=== PATIENT | male | born 1975 | race Caucasian/White ===

== ENCOUNTER 2021-10-02 20:20 | Emergency (ER) | payer OTHER ==
--- NOTE | 2021-10-02 22:36 | Cat Scan Report ---
CT HEAD WITHOUT CONTRAST INDICATION / CLINICAL INFORMATION: FALL. TECHNIQUE: All CT scans at this location are performed using CT dose reduction for ALARA by means of automated exposure control. COMPARISON: None available. FINDINGS: HEMORRHAGE: None. EXTRA-AXIAL SPACES: Normal in size and morphology for the patient's age. VENTRICULAR SYSTEM: Normal in size and morphology for the patient's age. CEREBRAL PARENCHYMA: No significant abnormality. No acute territorial infarct. MIDLINE SHIFT / HERNIATION: None. CEREBELLUM / BRAINSTEM: No significant abnormality. ORBITS: Normal as visualized. SOFT TISSUES: Slight bruising overlying the left cheek. SKULL: Partially visualized fractures of the posterior wall the left maxillary sinus. Possible involv ement of the posterior aspect of the inferior orbital wall. There is blood within the sinus. PARANASAL SINUSES / MASTOID AIR CELLS: There are blood products within the left maxillary sinus. ADDITIONAL FINDINGS: None. IMPRESSION: 1. Partially visualized mildly displaced fractures of the left maxillary bone along the posterior asp ect of the left maxillary sinus. Further evaluation with dedicated CT maxillofacial is recommended. 2. No CT evidence of an acute intracranial abnormality. Signer Name: Lester Vogel MD Signed: 10/02/2021 10:31 PM Workstation Name: [id number]
[2021-10-03 02:39] VITALS: BP 125/78
[2021-10-03] MEDS ORDERED: ONDANSETRON 4 MG/2 ML INJ IV ONE (06:54)
[2021-10-03] MEDS ORDERED: TETANUS,DIPH,PERTUSS(ACELL) VACCINE 0.5 ML SYRINGE IM ONE (07:07)
--- NOTE | 2021-10-03 07:07 | Emergency Department Report ---
ED Trauma HPI - General Chief Complaint: Head Injury Stated Complaint: HIT HEAD Time Seen by Provider: 10/03/21 06:53 Source: patient, RN notes reviewed Exam Limitations: no limitations - History of Present Illness Initial Comments: This is a 46-year-old male nontoxic, well nourished in appearance, no acute signs of distress presents to the ED with c/o of multiple injuries status post fall from 6 feet scaffold. Patient today he fell on towards his left face and left side upper extremity area. Otherwise patient denies any loss of consciousness. Patient still has some headaches, neck pain, facial pain, left shoulder, left lateral rib pain, left elbow pain, left wrist and left hand pain. Patient denies any other complaints or symptoms. Patient ecchymosis, chest pain, short of breath, blurry vision, fever, chills, stiff neck, bladder or bowel instability, diaphoresis, nausea, vomiting, joint pain or swelling, visual changes, numbness or tingling sensation extremity. Patient agrees to good rectal tone with no bladder overflow. Patient is currently ambulatory with no assistance. Patient denies any EtOH or recreational drugs. Patient denies any allergies or significant past medical history. Occurred: just prior to arrival Severity: moderate Pain Location: head, face, neck, chest, back, lower extremity Method of Injury: fall Loss of Consciousness: no loss of consciousness Associated Symptoms (Fall): chest pain, headache, nausea/vomiting, neck pain. denies: confusion, dizziness, lightheadedness, muscle spasms, ringing in ears, seizures, shortness of breath, slurred speech, trouble walking, vision changes Allergies/Adverse Reactions: Allergies No Known Allergies Allergy (Unverified 11/22/12 12:47) Home Medications: Ambulatory Orders Ibuprofen [Motrin] 800 mg PO TID #30 tablet 11/22/12 ED Review of Systems ROS: Stated complaint: HIT HEAD Other details as noted in HPI Comment: All other systems reviewed and negative Constitutional: denies: chills, fever Eyes: denies: eye pain, eye discharge, vision change ENT: denies: ear pain, throat pain Respiratory: denies: cough, shortness of breath, wheezing Cardiovascular: denies: chest pain, palpitations Endocrine: no symptoms reported Gastrointestinal: nausea, vomiting. denies: abdominal pain, diarrhea Genitourinary: denies: urgency, dysuria Musculoskeletal: back pain. denies: joint swelling, arthralgia Skin: denies: rash, lesions Neurological: headache. denies: weakness, numbness, paresthesias, confusion, abnormal gait, vertigo Psychiatric: denies: anxiety, depression Hematological/Lymphatic: denies: easy bleeding, easy bruising ED Past Medical Hx - Social History Smoking Status: Never Smoker - Medications Home Medications: Home Medications Medication Instructions Recorded Confirmed Last Taken Type Ibuprofen [Motrin] 800 mg PO TID #30 tablet 11/22/12 Unknown Rx ED Physical Exam - General Limitations: No Limitations General appearance: alert, in no apparent distress - Head Head exam: Present: normocephalic - Expanded Head Exam Expanded Head exam: Present: abrasion 1 - abrasion here with ecchymosis - Eye Eye exam: Present: normal appearance, PERRL, EOMI. Absent: scleral icterus, conjunctival injection, nystagmus, periorbital swelling, periorbital tenderness Pupils: Present: normal accommodation - ENT ENT exam: Present: normal exam, normal orophraynx, TM's normal bilaterally, normal external ear exam - Neck Neck exam: Present: normal inspection, full ROM. Absent: tenderness, meningismus, lymphadenopathy - Respiratory Respiratory exam: Present: normal lung sounds bilaterally, chest wall tenderness (left lateral chest). Absent: respiratory distress, wheezes, rales, rhonchi, stridor, accessory muscle use, decreased breath sounds, prolonged expiratory - Cardiovascular Cardiovascular Exam: Present: regular rate, normal rhythm, normal heart sounds. Absent: bradycardia, tachycardia, irregular rhythm, systolic murmur, diastolic murmur, rubs, gallop - GI/Abdominal GI/Abdominal exam: Present: soft, tenderness (left upper abdomen), normal bowel sounds. Absent: distended, guarding, rebound, rigid, diminished bowel sounds - Extremities Exam Extremities exam: Present: full ROM (with pain), tenderness, normal capillary refill. Absent: pedal edema, joint swelling, calf tenderness - Expanded Upper Extremity Exam Left Shoulder Exam: Present: full ROM (left shoulder with pain), tenderness (left shoulder only). Absent: swelling (bilateral exam), abrasion (bilateral exam), laceration (v), ecchymosis (bilateral exam), deformity (bilateral exam), crepidus (bilateral exam), dislocation (bilateral exam), erythema (bilateral exam), tenderness over AC joint (bilateral exam) Upper Arm exam: Present: normal inspection (bilateral exam), full ROM (bilateral exam). Absent: tenderness (bilateral exam), swelling (bilateral exam) Elbow exam: Present: normal inspection (bilateral exam), full ROM (left shoulder with pain), tenderness (left elbow only). Absent: swelling (bilateral exam), abrasion (bilateral exam), laceration (bilateral exam), ecchymosis (bilateral exam), deformity (bilateral exam), crepidus (bilateral exam), dislocation (bilateral exam), erythema, effusion, pain w/ pronation/supination, tenderness over radial head Forearm Wrist exam: Present: normal inspection (bilateral exam), full ROM (bilateral exam), tenderness (left side only), ecchymosis (left side only). Absent: swelling (bilateral exam), laceration (bilateral exam), deformity (bilateral exam), crepidus (bilateral exam), dislocation (bilateral exam), erythema (bilateral exam), tenderness over anatomical snuff box, pain with axial thumb loading Hand Wrist exam: Present: full ROM (left side with pain only), tenderness (left side only), swelling (left side only), ecchymosis (left side only). Absent: abrasion (bilateral exam), laceration (bilateral exam), deformity (bilateral exam), crepidus (bilateral exam), dislocation (bilateral exam), erythema (bilateral exam), amputation (bilateral exam), nail avulsion (bilateral exam), subungual hematoma (bilateral exam) Vascular: Present: normal capillary refill (bilateral exam). Absent: vascular compromise (bilateral exam: Neurovascular within normal limits) - Back Exam Back exam: Present: normal inspection, full ROM, paraspinal tenderness (cervical, lumbar and throcic). Absent: tenderness, CVA tenderness (R), CVA tenderness (L), muscle spasm, vertebral tenderness, rash noted - Expanded Back Exam Expanded Back exam: Absent: saddle anesthesia Back exam: Negative Straight Leg Raising: Left, Right - Neurological Exam Neurological exam: Present: alert, oriented X3, normal gait - Expanded Neurological Exam Expanded Patient oriented to: Present: person, place, time Cranial nerves: EOM's Intact: Normal, Facial Sensation: Normal Cerebellar function: Finger to Nose: Normal Upper motor neuron: Pronator Drift: Normal, Sensory Extinction: Normal Motor strength exam: RUE: 5, LUE: 5, RLE: 5, LLE: 5 Best Eye Response (Victoria): (4) open spontaneously Best Motor Response (Edgar): (6) obeys commands Best Verbal Response (Victoria): (5) oriented Edgar Total: 15 - Psychiatric Psychiatric exam: Present: normal affect, normal mood - Skin Skin exam: Present: warm, dry, intact, normal color. Absent: rash ED Course Vital Signs 10/02/21 10/03/21 10/03/21 20:59 02:37 11:33 Temperature 99.1 F 98.9 F Pulse Rate 96 H 89 Respiratory 18 18 Rate Blood Pressure 145/90 Blood Pressure 125/78 [Right] O2 Sat by Pulse 96 97 100 Oximetry - Reevaluation(s) Reevaluation #1: 10/03/21 07:10 Patient is speaking in full sentences with no signs of distress noted. - Consultations Consultation #1: 10/03/21 07:03 Patient has been consulted with Inder Wellington about patient history, physical exam, and agrees to the ED plan of care. Trauma protocols initiated. Consultation #2: 10/03/21 10:[address] Ceja and agrees to consult trauma. Awaiting for [facility] trauma for their consult. Consultation #3: 10/03/21 10:59 Patient has been consulted with Dr. Hanley ([facility] trauma ED) about patient history, physical exam, and imaging studies and accepts patient to services. Will transfer patient to [facility] ED at this time. ED Medical Decision Making - Lab Data Result diagrams: 10/03/21 06:57 10/03/21 06:57 Lab Results 10/03/21 10/03/21 Range/Units 06:57 06:57 WBC 11.7 H (4.5-11.0) K/mm3 RBC 5.27 H (3.65-5.03) M/mm3 Hgb 15.2 (11.8-15.2) gm/dl Hct 45.2 (35.5-45.6) % MCV 86 (84-94) fl MCH 29 (28-32) pg MCHC 34 (32-34) % RDW 13.3 (13.2-15.2) % Plt Count 294 (140-440) K/mm3 Lymph % (Auto) 13.6 (13.4-35.0) % Hood % (Auto) 7.9 H (0.0-7.3) % Eos % (Auto) 0.6 (0.0-4.3) % Baso % (Auto) 0.2 (0.0-1.8) % Lymph # (Auto) 1.6 (1.2-5.4) K/mm3 Hood # (Auto) 0.9 H (0.0-0.8) K/mm3 Eos # (Auto) 0.1 (0.0-0.4) K/mm3 Baso # (Auto) 0.0 (0.0-0.1) K/mm3 Seg Neutrophils % 77.7 H (40.0-70.0) % Seg Neutrophils # 9.1 H (1.8-7.7) K/mm3 Sodium 138 (137-145) mmol/L Potassium 3.9 (3.6-5.0) mmol/L Chloride 99.5 (98-107) mmol/L Carbon Dioxide 25 (22-30) mmol/L Anion Gap 17 mmol/L BUN 16 (9-20) mg/dL Creatinine 0.8 (0.8-1.3) mg/dL Estimated GFR > 60 ml/min BUN/Creatinine Ratio 20 % Glucose 111 H (75-100) mg/dL Calcium 9.4 (8.4-10.2) mg/dL Total Bilirubin 1.50 H (0.1-1.2) mg/dL Direct Bilirubin 0.2 (0-0.2) mg/dL Indirect Bilirubin 1.3 mg/dL AST 24 (5-40) units/L ALT 23 (7-56) units/L Alkaline Phosphatase 117 (35-129) units/L Total Protein 7.7 (6.3-8.2) g/dL Albumin 5.0 (3.9-5) g/dL Albumin/Globulin Ratio 1.9 % - Radiology Data [facility] [address] [place] [address] XRay Report Signed Patient: CIELO BARRY MR#: [id number] : 1975 Acct:[id number] Age/Sex: 46 / M ADM Date: 10/02/21 Loc: ED Attending Dr: Ordering Physician: MICK LÓPEZ NP Date of Service: 10/03/21 Procedure(s): XR wrist 3+V LT Accession Number(s): [id number] cc: MICK LÓPEZ NP Fluoro Time In Minutes: LEFT WRIST 3 VIEWS INDICATION: pain s/p fall. COMPARISON: None. IMPRESSION: Mild soft tissue swelling is present. No acute osseous abnormality or joint pathology is detected. Signer Name: Alexandre Centeno Jr, MD Signed: 10/03/2021 9:33 AM Workstation Name: [id number] Transcribed By: TTR Dictated By: ALEXANDRE CENTENO JR, MD Electronically Authenticated By: ALEXANDRE CENTENO JR, MD Signed Date/Time: 10/03/21932 DD/ 0 TD/TT: [facility] [address] [place] [address] XRay Report Signed Patient: CIELO BARRY MR#: [id number] : 1975 Acct:[id number] Age/Sex: 46 / M ADM Date: 10/02/21 Loc: ED Attending Dr: Ordering Physician: MICK LÓPEZ NP Date of Service: 10/03/21 Procedure(s): XR spine thoracic 2V Accession Number(s): [id number] cc: MICK LÓPEZ NP Fluoro Time In Minutes: THORACIC SPINE 2 VIEWS Lumbar spine 3 views INDICATION / CLINICAL INFORMATION: pain s/p fall. COMPARISON: CT dated 10/04/2019 FINDINGS: Thoracic spine: VERTEBRAE: No acute fracture of the imaged vertebral bodies. Several upper thoracic vertebral bodies are not well seen. No significant malalignment. DISC SPACES / FACET JOINTS:No significant abnormality. PARASPINAL SOFT TISSUES:No significant abnormality. ADDITIONAL FINDINGS: None. Lumbar spine: VERTEBRAE: No acute fracture. No significant malalignment. DISC SPACES / FACET JOINTS:No significant abnormality. PARASPINAL SOFT TISSUES:Excreted contrast material fills the renal collecting system and urinary bladder. This results in obscuration of the sacrum on AP views. ADDITIONAL FINDINGS: None. IMPRESSION: 1. No acute findings in the thoracic or lumbar spine. Signer Name: Jeffrey Anguiano MD Signed: 10/03/2021 9:32 AM Workstation Name: [id number] Transcribed By: JW Dictated By: JEFFREY ANGUIANO MD Electronically Authenticated By: JEFFREY ANGUIANO MD Signed Date/Time: 10/03/21931 DD/ 8 TD/TT: [facility] [address] [place] [address] XRay Report Signed Patient: CIELO BARRY MR#: [id number] : 1975 Acct:[id number] Age/Sex: 46 / M ADM Date: 10/02/21 Loc: ED Attending Dr: Ordering Physician: MICK LÓPEZ NP Date of Service: 10/03/21 Procedure(s): XR shoulder 2+V LT Accession Number(s): [id number] cc: MICK LÓPEZ NP Fluoro Time In Minutes: XR forearm LT, XR hand 3+V LT, XR elbow 3+V LT, XR shoulder 2+V LT INDICATION / CLINICAL INFORMATION: pain s/p fall. COMPARISON: None available. FINDINGS: Left shoulder: No acute fracture or malalignment. Left elbow: Acute mild comminuted, minimally displaced fracture of the lateral/volar aspect of the radial head with intra-articular involvement. No intra-articular incongruency. Radial capitellar alignment is preserved. No additional fracture. No significant arthritis. Mild joint capsular distention with elevation of the anterior fat pad. Left forearm: No additional fracture of the left radius or ulna. Left hand: Small fracture fragment at the dorsal aspect of the carpus likely reflecting triquetral fracture. No additional fracture. No joint malalignment. IMPRESSION: 1. Acute intra-articular radial head fracture. 2. Small triquetral fracture of the dorsal hand. Signer Name: Celeste Herrera MD Signed: 10/03/2021 9:32 AM Workstation Name: [id number] Transcribed By: JS Dictated By: CELESTE HERRERA MD Electronically Authenticated By: CELESTE HERRERA MD Signed Date/Time: 10/03/21931 DD/ 7 TD/TT: [facility] [address] [place] [address] XRay Report Signed Patient: CIELO BARRY MR#: [id number] : 1975 Acct:[id number] Age/Sex: 46 / M ADM Date: 10/02/21 Loc: ED Attending Dr: Ordering Physician: MICK LÓPEZ NP Date of Service: 10/03/21 Procedure(s): XR spine lumbosacral 2-3V Accession Number(s): [id number] cc: MICK LÓPEZ NP Fluoro Time In Minutes: THORACIC SPINE 2 VIEWS Lumbar spine 3 views INDICATION / CLINICAL INFORMATION: pain s/p fall. COMPARISON: CT dated 10/04/2019 FINDINGS: Thoracic spine: VERTEBRAE: No acute fracture of the imaged vertebral bodies. Several upper thoracic vertebral bodies are not well seen. No significant malalignment. DISC SPACES / FACET JOINTS:No significant abnormality. PARASPINAL SOFT TISSUES:No significant abnormality. ADDITIONAL FINDINGS: None. Lumbar spine: VERTEBRAE: No acute fracture. No significant malalignment. DISC SPACES / FACET JOINTS:No significant abnormality. PARASPINAL SOFT TISSUES:Excreted contrast material fills the renal collecting system and urinary bladder. This results in obscuration of the sacrum on AP views. ADDITIONAL FINDINGS: None. IMPRESSION: 1. No acute findings in the thoracic or lumbar spine. Signer Name: Jeffrey Anguiano MD Signed: 10/03/2021 9:32 AM Workstation Name: [id number] Transcribed By: JW Dictated By: JEFFREY ANGUIANO MD Electronically Authenticated By: JEFFREY ANGUIANO MD Signed Date/Time: 10/03/21931 DD/ 8 TD/TT: [facility] [address] [place] [address] XRay Report Signed Patient: CIELO BARRY MR#: [id number] : 1975 Acct:[id number] Age/Sex: 46 / M ADM Date: 10/02/21 Loc: ED Attending Dr: Ordering Physician: MICK LÓPEZ NP Date of Service: 10/03/21 Procedure(s): XR hand 3+V LT Accession Number(s): [id number] cc: MICK LÓPEZ NP Fluoro Time In Minutes: XR forearm LT, XR hand 3+V LT, XR elbow 3+V LT, XR shoulder 2+V LT INDICATION / CLINICAL INFORMATION: pain s/p fall. COMPARISON: None available. FINDINGS: Left shoulder: No acute fracture or malalignment. Left elbow: Acute mild comminuted, minimally displaced fracture of the lateral/volar aspect of the radial head with intra-articular involvement. No intra-articular incongruency. Radial capitellar alignment is preserved. No additional fracture. No significant arthritis. Mild joint capsular distention with elevation of the anterior fat pad. Left forearm: No additional fracture of the left radius or ulna. Left hand: Small fracture fragment at the dorsal aspect of the carpus likely reflecting triquetral fracture. No additional fracture. No joint malalignment. IMPRESSION: 1. Acute intra-articular radial head fracture. 2. Small triquetral fracture of the dorsal hand. Signer Name: Celeste Herrera MD Signed: 10/03/2021 9:32 AM Workstation Name: [id number] Transcribed By: JS Dictated By: CELESTE HERRERA MD Electronically Authenticated By: CELESTE HERRERA MD Signed Date/Time: 10/03/21931 DD/ 7 TD/TT: [address] [address] XRay Report Signed Patient: CIELO BARRY MR#: [id number] : 1975 Acct:[id number] Age/Sex: 46 / M ADM Date: 10/02/21 Loc: ED Attending Dr: Ordering Physician: MICK LÓPEZ NP Date of Service: 10/03/21 Procedure(s): XR forearm LT Accession Number(s): [id number] cc: MICK LÓPEZ NP Fluoro Time In Minutes: XR forearm LT, XR hand 3+V LT, XR elbow 3+V LT, XR shoulder 2+V LT INDICATION / CLINICAL INFORMATION: pain s/p fall. COMPARISON: None available. FINDINGS: Left shoulder: No acute fracture or malalignment. Left elbow: Acute mild comminuted, minimally displaced fracture of the lateral/volar aspect of the radial head with intra-articular involvement. No intra-articular incongruency. Radial capitellar alignment is preserved. No additional fracture. No significant arthritis. Mild joint capsular distention with elevation of the anterior fat pad. Left forearm: No additional fracture of the left radius or ulna. Left hand: Small fracture fragment at the dorsal aspect of the carpus likely reflecting triquetral fracture. No additional fracture. No joint malalignment. IMPRESSION: 1. Acute intra-articular radial head fracture. 2. Small triquetral fracture of the dorsal hand. Signer Name: Celeste Herrera MD Signed: 10/03/2021 9:32 AM Workstation Name: [id number] Transcribed By: RAMON Dictated By: CELESTE HERRERA MD Electronically Authenticated By: CELESTE HERRERA MD Signed Date/Time: 10/03/21931 DD/ 7 TD/TT: [place] [address] Cat Scan Report Signed Patient: CIELO BARRY MR#: [id number] : 1975 Acct:[id number] Age/Sex: 46 / M ADM Date: 10/02/21 Loc: ED Attending Dr: Ordering Physician: MICK LÓPEZ NP Date of Service: 10/03/21 Procedure(s): CT facial bones wo con Accession Number(s): [id number] cc: MICK LÓPEZ NP CT MAXILLOFACIAL WITHOUT CONTRAST INDICATION: pain s/p fall. TECHNIQUE: All CT scans at this location are performed using CT dose reduction for ALARA by means of automated exposure control. COMPARISON: None available. FINDINGS: FACIAL BONES: There is a mildly displaced fracture of the left inferior orbital rim extending into the left lateral maxillary sinus wall. There is no additional fracture. Temporomandibular joints are normally aligned. PARANASAL SINUSES: Small amount blood layering in the left maxillary sinus. ORBITS: No significant abnormality. VISUALIZED INTRACRANIAL STRUCTURES: No significant abnormality. ADDITIONAL FINDINGS: None. IMPRESSION: 1. Mildly displaced fracture of the left inferior orbital rim extending into the left lateral maxillary sinus wall. Signer Name: Rodger Mcclure MD Signed: 10/03/2021 8:47 AM Workstation Name: [id number] Transcribed By: ABDIRIZAK Dictated By: Rodger Mcclure MD Electronically Authenticated By: Rodger Mcclure MD Signed Date/Time: 10/03/21846 DD/ 9 TD/TT: [address] [address] XRay Report Signed Patient: CIELO BARRY MR#: [id number] : 1975 Acct:[id number] Age/Sex: 46 / M ADM Date: 10/02/21 Loc: ED Attending Dr: Ordering Physician: MICK LÓPEZ NP Date of Service: 10/03/21 Procedure(s): XR elbow 3+V LT Accession Number(s): [id number] cc: MICK LÓPEZ NP Fluoro Time In Minutes: XR forearm LT, XR hand 3+V LT, XR elbow 3+V LT, XR shoulder 2+V LT INDICATION / CLINICAL INFORMATION: pain s/p fall. COMPARISON: None available. FINDINGS: Left shoulder: No acute fracture or malalignment. Left elbow: Acute mild comminuted, minimally displaced fracture of the lateral/volar aspect of the radial head with intra-articular involvement. No intra-articular incongruency. Radial capitellar alignment is preserved. No additional fracture. No significant arthritis. Mild joint capsular distention with elevation of the anterior fat pad. Left forearm: No additional fracture of the left radius or ulna. Left hand: Small fracture fragment at the dorsal aspect of the carpus likely reflecting triquetral fracture. No additional fracture. No joint malalignment. IMPRESSION: 1. Acute intra-articular radial head fracture. 2. Small triquetral fracture of the dorsal hand. Signer Name: Celeste Hererra MD Signed: 10/03/2021 9:32 AM Workstation Name: [id number] Transcribed By: JS Dictated By: CELESTE HERRERA MD Electronically Authenticated By: CELESTE HERRERA MD Signed Date/Time: 10/03/21931 DD/ 7 TD/TT: [address] [address] Cat Scan Report Signed Patient: CIELO BARRY MR#: [id number] : 1975 Acct:[id number] Age/Sex: 46 / M ADM Date: 10/02/21 Loc: ED Attending Dr: Ordering Physician: MICK LÓPEZ NP Date of Service: 10/03/21 Procedure(s): CT chest w con Accession Number(s): [id number] cc: MICK LÓPEZ NP CT CHEST, ABDOMEN, AND PELVIS WITH CONTRAST INDICATION / CLINICAL INFORMATION: pain s/p fall. TECHNIQUE: Axial CT images were obtained through the chest, abdomen, and pelvis after 100 cc of Omnipaque [address] scans at this location are performed using CT dose reduction for ALARA by means of automated exposure control. COMPARISON: None available. FINDINGS: HEART: No significant abnormality. CORONARY ARTERY CALCIFICATION: None. THORACIC AORTA: No significant abnormality. MEDIASTINUM / CHRISTINA: No significant abnormality. PLEURA: No pleural effusion. No pneumothorax. LUNGS: No acute air space or interstitial disease. Mild atelectatic changes are noted in the lingula and lateral left lower lobe. ADDITIONAL CHEST FINDINGS: None. LIVER: No significant abnormality. GALLBLADDER: No significant abnormality. BILE DUCTS: No significant abnormality. PANCREAS: No significant abnormality. SPLEEN: No significant abnormality. ADRENALS: No significant abnormality. RIGHT KIDNEY / URETER: No significant abnormality. LEFT KIDNEY / URETER: No significant abnormality. STOMACH and SMALL BOWEL: No significant abnormality. COLON: No significant abnormality. APPENDIX: No significant abnormality. PERITONEUM: No free fluid. No free air. No fluid collection. LYMPH NODES: No significant adenopathy. AORTA / ARTERIES: No significant abnormality. IVC / VEINS: No significant abnormality. URINARY BLADDER: No significant abnormality. REPRODUCTIVE ORGANS: No significant abnormality. ADDITIONAL FINDINGS: None. SKELETAL SYSTEM: Nondisplaced left lateral sixth rib fracture is identified. No additional fracture is detected. IMPRESSION: 1. Left lateral sixth rib fracture. 2. Minor atelectatic changes at the left lung base. 3. Otherwise unremarkable CT of the chest, abdomen and pelvis. Signer Name: Alexandre Centeno Jr, MD Signed: 10/03/2021 8:54 AM Workstation Name: [id number] Transcribed By: TTR Dictated By: ALEXANDRE CENTENO JR, MD Electronically Authenticated By: ALEXANDRE CENTENO JR, MD Signed Date/Time: 10/03/21 0854 DD/ 0848 TD/TT: [address] [address] Cat Scan Report Signed Patient: CIELO BARRY MR#: [id number] : 1975 Acct:[id number] Age/Sex: 46 / M ADM Date: 10/02/21 Loc: ED Attending Dr: Ordering Physician: MICK LÓPEZ NP Date of Service: 10/03/21 Procedure(s): CT cervical spine wo con Accession Number(s): [id number] cc: MICK LÓPEZ NP CT CERVICAL SPINE WITHOUT CONTRAST INDICATION: pain s/p fall. TECHNIQUE: Axial CT images of the spine were obtained. Sagittal and coronal reformatted images were produced. All CT scans at this location are performed using CT dose reduction for ALARA by means of automated exposure control. COMPARISON: None available. FINDINGS: ACUTE FRACTURE(S) OR SUBLUXATION: None. SPINAL DEGENERATIVE CHANGES: No significant degenerative changes. PARASPINAL SOFT TISSUES: No soft tissue swelling or other acute abnormalities. ADDITIONAL FINDINGS: No significant additional findings. IMPRESSION: 1. No acute fracture or subluxation in the spine in neutral position. Signer Name: Rodger Mcclure MD Signed: 10/03/2021 8:51 AM Workstation Name: [id number] Transcribed By: ABDIRIZAK Dictated By: Rodger Mcclure MD Electronically Authenticated By: Rodger Mcclure MD Signed Date/Time: 10/03/2151 DD/ TD/TT: [address] [address] Cat Scan Report Signed Patient: CIELO BARRY MR#: [id number] : 1975 Acct:[id number] Age/Sex: 46 / M ADM Date: 10/02/21 Loc: ED Attending Dr: Ordering Physician: MICK LÓPEZ NP Date of Service: 10/03/21 Procedure(s): CT abdomen pelvis w con Accession Number(s): [id number] cc: MICK LÓPEZ NP CT CHEST, ABDOMEN, AND PELVIS WITH CONTRAST INDICATION / CLINICAL INFORMATION: pain s/p fall. TECHNIQUE: Axial CT images were obtained through the chest, abdomen, and pelvis after 100 cc of Omnipaque [address] scans at this location are performed using CT dose reduction for ALARA by means of automated exposure control. COMPARISON: None available. FINDINGS: HEART: No significant abnormality. CORONARY ARTERY CALCIFICATION: None. THORACIC AORTA: No significant abnormality. MEDIASTINUM / CHRISTINA: No significant abnormality. PLEURA: No pleural effusion. No pneumothorax. LUNGS: No acute air space or interstitial disease. Mild atelectatic changes are noted in the lingula and lateral left lower lobe. ADDITIONAL CHEST FINDINGS: None. LIVER: No significant abnormality. GALLBLADDER: No significant abnormality. BILE DUCTS: No significant abnormality. PANCREAS: No significant abnormality. SPLEEN: No significant abnormality. ADRENALS: No significant abnormality. RIGHT KIDNEY / URETER: No significant abnormality. LEFT KIDNEY / URETER: No significant abnormality. STOMACH and SMALL BOWEL: No significant abnormality. COLON: No significant abnormality. APPENDIX: No significant abnormality. PERITONEUM: No free fluid. No free air. No fluid collection. LYMPH NODES: No significant adenopathy. AORTA / ARTERIES: No significant abnormality. IVC / VEINS: No significant abnormality. URINARY BLADDER: No significant abnormality. REPRODUCTIVE ORGANS: No significant abnormality. ADDITIONAL FINDINGS: None. SKELETAL SYSTEM: Nondisplaced left lateral sixth rib fracture is identified. No additional fracture is detected. IMPRESSION: 1. Left lateral sixth rib fracture. 2. Minor atelectatic changes at the left lung base. 3. Otherwise unremarkable CT of the chest, abdomen and pelvis. Signer Name: Alexandre Centeno Jr, MD Signed: 10/03/2021 8:54 AM Workstation Name: [id number] Transcribed By: TTR Dictated By: ALEXANDRE CENTENO JR, MD Electronically Authenticated By: ALEXANDRE CENTENO JR, MD Signed Date/Time: 10/03/2154 DD/ TD/TT: [facility] [address] [place] [address] Cat Scan Report Signed Patient: CIELO BARRY MR#: [id number] : 1975 Acct:[id number] Age/Sex: 46 / M ADM Date: 10/02/21 Loc: ED Attending Dr: Ordering Physician: TRUE VÁSQUEZ MD Date of Service: 10/02/21 Procedure(s): CT head/brain wo con Accession Number(s): [id number] cc: ED MD THALIA CT HEAD WITHOUT CONTRAST INDICATION / CLINICAL INFORMATION: FALL. TECHNIQUE: All CT scans at this location are performed using CT dose reduction for ALARA by means of automated exposure control. COMPARISON: None available. FINDINGS: HEMORRHAGE: None. EXTRA-AXIAL SPACES: Normal in size and morphology for the patient's age. VENTRICULAR SYSTEM: Normal in size and morphology for the patient's age. CEREBRAL PARENCHYMA: No significant abnormality. No acute territorial infarct. MIDLINE SHIFT / HERNIATION: None. CEREBELLUM / BRAINSTEM: No significant abnormality. ORBITS: Normal as visualized. SOFT TISSUES: Slight bruising overlying the left cheek. SKULL: Partially visualized fractures of the posterior wall the left maxillary sinus. Possible involvement of the posterior aspect of the inferior orbital wall. There is blood within the sinus. PARANASAL SINUSES / MASTOID AIR CELLS: There are blood products within the left maxillary sinus. ADDITIONAL FINDINGS: None. IMPRESSION: 1. Partially visualized mildly displaced fractures of the left maxillary bone along the posterior aspect of the left maxillary sinus. Further evaluation with dedicated CT maxil lofacial is recommended. 2. No CT evidence of an acute intracranial abnormality. Signer Name: Brittany Vogel MD Signed: 10/02/2021 10:31 PM Workstation Name: [id number] Transcribed By: Dictated By: BRITTANY VOGEL MD Electronically Authenticated By: BRITTANY VOGEL MD Signed Date/Time: 10/02/212230 DD/ 16 TD/TT: - Medical Decision Making 46-year-old male that presents with multiple trauma. Patient is stable and was examined by me. Patient transferred to [facility] ED for further evaluation and treatment. Patient received a sugar-tong left arm splint. Post splint assessment: neurovasular intact; normal cap refill <2 second; normal sensation; denies decreaed sensation; normal ROM of digits. Also received a shoulder sling. Patient is notified of the imaging results with no questions noted by the patient. At time of transfer, the patient does not seem toxic or ill in appearance. No acute signs of distress noted. Patient agrees to transfer treatment plan of care. No further questions noted by the patient. Critical care attestation.: If time is entered above; I have spent that time in minutes in the direct care of this critically ill patient, excluding procedure time. ED Disposition Clinical Impression: Multiple trauma Orbital fracture Qualifiers: Encounter type: initial encounter Fracture type: closed Qualified Code(s): S02 .85XA - Fracture of orbit, unspecified, initial encounter for closed fracture Maxillary fracture Qualifiers: Encounter type: initial encounter Fracture type: closed Laterality: left Ernie lified Code(s): S02.40DA - Maxillary fracture, left side, initial encounter for closed fracture Left radial head fracture Qualifiers: Encounter type: initial encounter Fracture type: closed Fracture alignment: nondisplaced Qualified Code(s): S52.125A - Nondisplaced fracture of head of left radius, initial encounter for closed fracture Left rib fracture Qualifiers: Encounter type: initial encounter Rib fracture type: single rib Fracture type: closed Qualified Code(s): S22.32XA - Fracture of one rib, left side, initial encounter for closed fracture Left hand fracture Qualifiers: Encounter type: initial encounter Fracture type: closed Qualified Code(s): S62.92XA - Unspecified fracture of left wrist and hand, initial encounter for closed fracture Fall Qualifiers: Encounter type: initial encounter Qualified Code(s): W19.XXXA - Unspecified fall, initial encounter Disposition: [address] [place] [address] CARE FACILITY Is pt being admited?: No Condition: Stable Time of Disposition: 11:53
[2021-10-03 07:23] LABS: Basophils % (Auto) 0.2 % (0.0-1.8); Eosinophils # (Auto) 0.1 K/mm3 (0.0-0.4); Eosinophils % (Auto) 0.6 % (0.0-4.3); Hematocrit 45.2 % (35.5-45.6); Hemoglobin 15.2 gm/dl (11.8-15.2); Lymphocytes # (Auto) 1.6 K/mm3 (1.2-5.4); Lymphocytes % (Auto) 13.6 % (13.4-35.0); Mean Corpuscular HGB Conc 34 % (32-34); Mean Corpuscular Volume 86 fl (84-94); Monocytes # (Auto) 0.9 K/mm3 (0.0-0.8); Monocytes % (Auto) 7.9 % (0.0-7.3); Platelet Count 294 K/mm3 (140-440); Red Blood Count 5.27 M/mm3 (3.65-5.03); Red Cell Distribution Width 13.3 % (13.2-15.2)
[2021-10-03] MEDS ORDERED: MORPHINE 4 MG/1 ML INJ IV ONE (07:44)
[2021-10-03 07:58] LABS: Alanine Aminotransferase 23 units/L (7-56); BUN/Creatinine Ratio 20; Bilirubin,Direct 0.2 mg/dL (0-0.2); Blood Urea Nitrogen 16 mg/dL (9-20); Calcium 9.4 mg/dL (8.4-10.2); Hemolysis Index 18
--- NOTE | 2021-10-03 08:52 | Cat Scan Report ---
CT MAXILLOFACIAL WITHOUT CONTRAST INDICATION: pain s/p fall. TECHNIQUE: All CT scans at this location are performed using CT dose reduction for ALARA by means of automated e xposure control. COMPARISON: None available. FINDINGS: FACIAL BONES: There is a mildly displaced fracture of the left inferior orbital rim extending into th e left lateral maxillary sinus wall. There is no additional fracture. Temporomandibular joints are no rmally aligned. PARANASAL SINUSES: Small amount blood layering in the left maxillary sinus. ORBITS: No significant abnormality. VISUALIZED INTRACRANIAL STRUCTURES: No significant abnormality. ADDITIONAL FINDINGS: None. IMPRESSION: 1. Mildly displaced fracture of the left inferior orbital rim extending into the left lateral maxil graham sinus wall. Signer Name: Rodger Mcclure MD Signed: 10/03/2021 8:47 AM Workstation Name: [employer]
--- NOTE | 2021-10-03 08:55 | Cat Scan Report ---
CT CERVICAL SPINE WITHOUT CONTRAST INDICATION: pain s/p fall. TECHNIQUE: Axial CT images of the spine were obtained. Sagittal and coronal reformatted images were produced. Al l CT scans at this location are performed using CT dose reduction for ALARA by means of automated exp osure control. COMPARISON: None available. FINDINGS: ACUTE FRACTURE(S) OR SUBLUXATION: None. SPINAL DEGENERATIVE CHANGES: No significant degenerative changes. PARASPINAL SOFT TISSUES: No soft tissue swelling or other acute abnormalities. ADDITIONAL FINDINGS: No significant additional findings. IMPRESSION: 1. No acute fracture or subluxation in the spine in neutral position. Signer Name: Rodger Mcclure MD Signed: 10/03/2021 8:51 AM Workstation Name: [email or web address]
--- NOTE | 2021-10-03 08:59 | Cat Scan Report ---
CT CHEST, ABDOMEN, AND PELVIS WITH CONTRAST INDICATION / CLINICAL INFORMATION: pain s/p fall. TECHNIQUE: Axial CT images were obtained through the chest, abdomen, and pelvis after 100 cc of Omnip aque [address] scans at this location are performed using CT dose reduction for ALARA b y means of automated exposure control. COMPARISON: None available. FINDINGS: HEART: No significant abnormality. CORONARY ARTERY CALCIFICATION: None. THORACIC AORTA: No significant abnormality. MEDIASTINUM / CHRISTINA: No significant abnormality. PLEURA: No pleural effusion. No pneumothorax. LUNGS: No acute air space or interstitial disease. Mild atelectatic changes are noted in the lingula and lateral left lower lobe. ADDITIONAL CHEST FINDINGS: None. LIVER: No significant abnormality. GALLBLADDER: No significant abnormality. BILE DUCTS: No significant abnormality. PANCREAS: No significant abnormality. SPLEEN: No significant abnormality. ADRENALS: No significant abnormality. RIGHT KIDNEY / URETER: No significant abnormality. LEFT KIDNEY / URETER: No significant abnormality. STOMACH and SMALL BOWEL: No significant abnormality. COLON: No significant abnormality. APPENDIX: No significant abnormality. PERITONEUM: No free fluid. No free air. No fluid collection. LYMPH NODES: No significant adenopathy. AORTA / ARTERIES: No significant abnormality. IVC / VEINS: No significant abnormality. URINARY BLADDER: No significant abnormality. REPRODUCTIVE ORGANS: No significant abnormality. ADDITIONAL FINDINGS: None. SKELETAL SYSTEM: Nondisplaced left lateral sixth rib fracture is identified. No additional fracture i s detected. IMPRESSION: 1. Left lateral sixth rib fracture. 2. Minor atelectatic changes at the left lung base. 3. Otherwise unremarkable CT of the chest, abdomen and pelvis. Signer Name: Alexandre Centeno Jr, MD Signed: 10/03/2021 8:54 AM Workstation Name: [id number]
--- NOTE | 2021-10-03 09:36 | XRay Report ---
XR forearm LT, XR hand 3+V LT, XR elbow 3+V LT, XR shoulder 2+V LT INDICATION / CLINICAL INFORMATION: pain s/p fall. COMPARISON: None available. FINDINGS: Left shoulder: No acute fracture or malalignment. Left elbow: Acute mild comminuted, minimally displaced fracture of the lateral/volar aspect of the ra dial head with intra-articular involvement. No intra-articular incongruency. Radial capitellar alignm ent is preserved. No additional fracture. No significant arthritis. Mild joint capsular distention wi th elevation of the anterior fat pad. Left forearm: No additional fracture of the left radius or ulna. Left hand: Small fracture fragment at the dorsal aspect of the carpus likely reflecting triquetral fr acture. No additional fracture. No joint malalignment. IMPRESSION: 1. Acute intra-articular radial head fracture. 2. Small triquetral fracture of the dorsal hand. Signer Name: Stephan Herrera MD Signed: 10/03/2021 9:32 AM Workstation Name: [employer]
--- NOTE | 2021-10-03 09:37 | XRay Report ---
LEFT WRIST 3 VIEWS INDICATION: pain s/p fall. COMPARISON: None. IMPRESSION: Mild soft tissue swelling is present. No acute osseous abnormality or joint pathology i s detected. Signer Name: Alexandre Centeno Jr, MD Signed: 10/03/2021 9:33 AM Workstation Name: [id number]
--- NOTE | 2021-10-03 09:37 | XRay Report ---
THORACIC SPINE 2 VIEWS Lumbar spine 3 views INDICATION / CLINICAL INFORMATION: pain s/p fall. COMPARISON: CT dated 10/04/2019 FINDINGS: Thoracic spine: VERTEBRAE: No acute fracture of the imaged vertebral bodies. Several upper thoracic vertebral bodies are not well seen. No significant malalignment. DISC SPACES / FACET JOINTS:No significant abnormality. PARASPINAL SOFT TISSUES:No significant abnormality. ADDITIONAL FINDINGS: None. Lumbar spine: VERTEBRAE: No acute fracture. No significant malalignment. DISC SPACES / FACET JOINTS:No significant abnormality. PARASPINAL SOFT TISSUES:Excreted contrast material fills the renal collecting system and urinary blad hasmukh. This results in obscuration of the sacrum on AP views. ADDITIONAL FINDINGS: None. IMPRESSION: 1. No acute findings in the thoracic or lumbar spine. Signer Name: Jose Alberto Orta MD Signed: 10/03/2021 9:32 AM Workstation Name: [id number]
[2021-10-03] MEDS ORDERED: HYDROmorphone 1 MG/1 ML INJ IV ONE (11:41)
== END 2021-10-03 13:05 ==
LOC: ED 20:20
DX: S02.85XA Fracture of orbit, unspecified, initial encounter for closed fracture (principal); S52.125A Nondisplaced fracture of head of left radius, initial encounter for closed fracture; S62.92XA Unspecified fracture of left hand, initial encounter for closed fracture; S02.40DA Maxillary fracture, left side, initial encounter for closed fracture; W19.XXXA Unspecified fall, initial encounter; Y93.89 Activity, other specified; Y92.89 Other specified places as the place of occurrence of the external cause; Y99.8 Other external cause status
CPT/HCPCS: 36415; 70450; 70486; 71260; 72070; 72100; 72125; 73030; 73080; 73090; 73110; 73130; 74177; 80048; 80076; 85025; 90471; 90715; 96374; 96375; 99285; J1170; J2270; J2405; Q9967